=== PATIENT | female | born 1970 | race Caucasian/White ===

== ENCOUNTER → 2020-12-01 | Day surgery (SDC) | payer OTHER ==
[~2020-12-01] VITALS: Ht 167.6 cm; Wt 86.6 kg
[~2020-12-01] MED LIST: ASCORBIC ACID500 MG PO; BIOTIN2500 MCG PO; ELIQUIS5 MG PO; LIPITOR20 MG PO; NEURONTIN100 MG PO; NORCO 5-325 TA1 EACH PO; ONDANSETRON ODT8 MG PO; PRENATAL FORMU1 EACH PO; VITAMIN B122500 MCG PO; VITAMIN D3 PO
[2020-12-01 10:01] LABS: HCG (URINE) SCREEN NEGATIVE (NEGATIVE)
[2020-12-01 10:30] LABS: HCT 33.4 % (37.0-47.0); HGB 11.2 g/dl (12.5-16.0); MCH 35.7 pg (25.0-31.0); MCHC 33.5 g/dL (32.0-36.0); MCV 106.4 fL (78.0-100.0); RBC 3.14 M/uL (4.20-5.40); RDW 14.2 % (11.5-14.0); WBC 4.3 K/uL (4.0-10.5)
[2020-12-01 10:39] LABS: ALBUMIN 3.5 g/dL (3.4-5.0); BILIRUBIN - TOTAL 0.3 mg/dL (0.2-1.0); BUN/CREAT RATIO (CALC) 19.2 RATIO; CREATININE 0.52 mg/dL (0.51-0.95); GLOBULIN (CALCULATION) 2.9 g/dL; POTASSIUM 3.4 mmol/L (3.5-5.1); TOTAL PROTEIN 6.4 g/dL (6.4-8.2)
== END | disposition home or self-care (01) ==
LOC: FAS 09:28
PROVIDERS: Surgery
DX: Z12.11 Encounter for screening for malignant neoplasm of colon (principal); K21.9 Gastro-esophageal reflux disease without esophagitis; K29.70 Gastritis, unspecified, without bleeding; K31.89 Other diseases of stomach and duodenum; C50.919 Malignant neoplasm of unspecified site of unspecified female breast; I87.2 Venous insufficiency (chronic) (peripheral); F17.210 Nicotine dependence, cigarettes, uncomplicated; Z17.0 Estrogen receptor positive status [ER+]; Z79.899 Other long term (current) drug therapy; Z86.2 Personal history of diseases of the blood and blood-forming organs and certain disorders involving the immune mechanism; Z86.59 Personal history of other mental and behavioral disorders; Z86.73 Personal history of transient ischemic attack (TIA), and cerebral infarction without residual deficits; Z79.01 Long term (current) use of anticoagulants; Z90.49 Acquired absence of other specified parts of digestive tract; Z98.0 Intestinal bypass and anastomosis status; Z20.822 Contact with and (suspected) exposure to COVID-19
CPT/HCPCS: 43239; G0121; 36415; 80053; 84703; J1642; J2250; J2704; J7120

== ENCOUNTER → 2022-04-28 | Day surgery (SDC) | payer OTHER ==
[~2022-04-28] VITALS: Ht 167.6 cm; Wt 95.2 kg
[~2022-04-28] MED LIST changes: +ANASTROZOLE1 M1 PO; +OXYBUTYNIN CHLO10 MG PO; +VENLAFAXINE HCL75 MG PO
[2022-04-28 08:27] LABS: HCT 34.7 % (37.0-47.0); HGB 11.7 g/dl (12.5-16.0); MCH 32.1 pg (25.0-31.0); MCHC 33.7 g/dL (32.0-36.0); MCV 95.3 fL (78.0-100.0); MPV 9.4 fL (6.0-9.5); RBC 3.64 M/uL (4.20-5.40); RDW 11.7 % (11.5-14.0); WBC 4.1 K/uL (4.0-10.5)
[2022-04-28 08:56] LABS: ALBUMIN 3.5 g/dL (3.4-5.0); BILIRUBIN - TOTAL 0.2 mg/dL (0.2-1.0); BUN/CREAT RATIO (CALC) 26.7 RATIO; CREATININE 0.6 mg/dL (0.51-0.95); POTASSIUM 3.9 mmol/L (3.5-5.1); TOTAL PROTEIN 6.5 g/dL (6.4-8.2)
== END | disposition home or self-care (01) ==
LOC: FAS 07:36
PROVIDERS: Surgery
DX: I87.2 Venous insufficiency (chronic) (peripheral) (principal); Z85.3 Personal history of malignant neoplasm of breast; Z86.73 Personal history of transient ischemic attack (TIA), and cerebral infarction without residual deficits; Z87.891 Personal history of nicotine dependence; Z79.01 Long term (current) use of anticoagulants
CPT/HCPCS: 36415; 80053; J1100; J2250; J2405; J2704; J3010; J7120